=== PATIENT | female | born 1975 ===

== ENCOUNTER 2020-08-12 15:25 | Emergency (ER) | payer SELFPAY ==
[2020-08-12 15:51] VITALS: BP 124/84
--- NOTE | 2020-08-12 16:00 | Event Note ---
ED Screening Note Date of service: 08/12/20 Time: 16:00 ED Screening Note: Epigastric abdominal pain with distention, vomiting and nausea. This initial assessment/diagnostic orders/clinical plan/treatment(s) is/are subject to change based on patients health status, clinical progression and re- assessment by fellow clinical providers in the ED. Further treatment and workup at subsequent clinical providers discretion. Patient/guardian urged not to elope from the ED as their condition may be serious if not clinically assessed and managed. Initial orders include: CBC, CMP, lipase, urinalysis, urine test
[2020-08-12 16:50] LABS: Basophils % (Auto) 0.8 % (0.0-1.8); Eosinophils # (Auto) 0.1 K/mm3 (0.0-0.4); Eosinophils % (Auto) 2.1 % (0.0-4.3); Hematocrit 38.2 % (30.3-42.9); Hemoglobin 12.5 gm/dl (10.1-14.3); Lymphocytes # (Auto) 1.6 K/mm3 (1.2-5.4); Lymphocytes % (Auto) 32.3 % (13.4-35.0); Mean Corpuscular HGB Conc 33 % (30-34); Mean Corpuscular Volume 84 fl (79-97); Monocytes # (Auto) 0.5 K/mm3 (0.0-0.8); Monocytes % (Auto) 9.6 % (0.0-7.3); Platelet Count 253 K/mm3 (140-440); Red Blood Count 4.56 M/mm3 (3.65-5.03)
[2020-08-12 17:06] LABS: Alanine Aminotransferase 24 units/L (7-56); Albumin 4.1 g/dL (3.9-5); Blood Urea Nitrogen 12 mg/dL (7-17); Calcium 8.9 mg/dL (8.4-10.2); Hemolysis Index 7
[2020-08-12 17:09] LABS: BUN/Creatinine Ratio 24; Bilirubin,Direct < 0.2 mg/dL (0-0.2)
[2020-08-12] MEDS ORDERED: FAMOTIDINE 20 MG TAB PO ONE (21:17)
[2020-08-12] MEDS ORDERED: LIDOCAINE VISCOUS 2% 15 ML ORAL LIQD PO ONE (21:17)
[2020-08-12] MEDS ORDERED: ALUM-MAG HYDROXIDE-SIMETHICONE 200-200-20MG/5ML ORAL LIQD 30 ML PO ONE (21:17)
[2020-08-12 21:33] LABS: Bacteria,Urine 1+ /HPF (Negative); Bilirubin,Urine NEG (Negative); Blood,Urine NEG (Negative); Color,Urine Straw (Yellow); Mucus,Urine FEW /HPF; Protein,Urine <15 mg/dL mg/dL (Negative); Urobilinogen,Urine < 2.0 mg/dL (<2.0); WBC,Urine < 1.0 /HPF (0.0-6.0)
[2020-08-12 21:39] LABS: HCG Qualitative,Urine Negative (Negative)
[2020-08-12] MEDS ORDERED: traMADol 50 MG TAB PO ONE (22:25)
--- NOTE | 2020-08-12 23:28 | Emergency Department Report ---
ED Abdominal Pain HPI - General Chief Complaint: Abdominal Pain Stated Complaint: ABD PAIN/INFLAMATION Time Seen by Provider: 08/12/20 20:40 Source: patient Mode of arrival: Ambulatory Limitations: Language Barrier - History of Present Illness Initial Comments: 45-year-old [place]ian-speaking female with a past medical history tubal ligation presents to the hospital complaining of intermittent epigastric abdominal pain gradually worsening for the past 4 days. Pain is described as a burning sensation in her upper abdomen feels swollen. She denies nausea, vomiting, diarrhea, fever, or hematochezia. She does endorse black stools and constipation. She is not currently taking any medication and denies NSAID, aspirin, Pepto-Bismol, and iron tablet use. Severity scale (0 -10): 3 - Related Data Previous Rx's Medication Instructions Recorded Last Taken Type Docusate Sodium [Colace] 100 mg PO BID PRN #20 capsule 08/13/20 Unknown Rx HYDROcodone/APAP 5-325 [[place] 1 each PO Q6HR PRN #15 tablet 08/13/20 Unknown Rx 5/325] Mag Hydrox/Aluminum Hyd/Simeth 20 ml PO QID PRN #1 bottle 08/13/20 Unknown Rx [Maalox Advanced Suspension] Pantoprazole [Protonix TAB] 20 mg PO QDAY #30 tablet. 08/13/20 Unknown Rx Allergies Allergy/AdvReac Type Severity Reaction Status Date / Time No Known Allergies Allergy Unverified 08/12/20 15:50 ED Review of Systems ROS: Stated complaint: ABD PAIN/INFLAMATION Other details as noted in HPI Comment: All other systems reviewed and negative ED Past Medical Hx - Past Medical History Previous Medical History?: No - Surgical History Past Surgical History?: No - Social History Smoking Status: Current Every Day Smoker Substance Use Type: None - Medications Home Medications: Home Medications Medication Instructions Recorded Confirmed Last Taken Type Docusate Sodium [Colace] 100 mg PO BID PRN #20 capsule 08/13/20 Unknown Rx HYDROcodone/APAP 5-325 [[place] 1 each PO Q6HR PRN #15 tablet 08/13/20 Unknown Rx 5/325] Mag Hydrox/Aluminum Hyd/Simeth 20 ml PO QID PRN #1 bottle 08/13/20 Unknown Rx [Maalox Advanced Suspension] Pantoprazole [Protonix TAB] 20 mg PO QDAY #30 tablet. 08/13/20 Unknown Rx ED Physical Exam - General Limitations: Language Barrier - Other Other exam information: General: No acute distress Head: Atraumatic Eyes: normal appearance ENT: Moist mucous membranes Neck: Normal appearance, no midline tenderness Chest: Clear to auscultation bilaterally CV: Regular rate and rhythm Abdomen: Soft, normal bowel sounds, epigastric tenderness, nondistended, no rebo und or guarding Rectal: Dark/black stool with reddish discoloration that was faintly guaiac positive. There was no significant blue color change on areas of redness or areas of dark/black stool Back: Normal inspection Extremity: Normal inspection, full range of motion Neuro: Alert O x 3, no facial asymmetry, speech clear, no gross motor sensory deficit Psych: Appropriate behavior Skin: No rash ED Course Vital Signs 08/12/20 08/12/20 15:50 23:13 Temperature 97.8 F Pulse Rate 85 Respiratory 18 16 Rate Blood Pressure 124/84 O2 Sat by Pulse 97 Oximetry - Reevaluation(s) Reevaluation #1: 08/12/20 23:26 Patient received Pepcid, viscous lidocaine, and Maalox with some mild relief in pain. Tramadol also provided. Ultrasound ordered to rule out biliary disease Reevaluation #2: 08/13/20 00:17 I requested patient's height to be double checked because patient appears to be 5ft 4in as opposed to 6ft 4in as entered into the computer ED Medical Decision Making - Lab Data Result diagrams: 08/12/20 16:09 08/12/20 16:09 Lab Results 08/12/20 08/12/20 08/12/20 Range/Units 16:09 16:09 20:45 WBC 4.9 (4.5-11.0) K/mm3 RBC 4.56 (3.65-5.03) M/mm3 Hgb 12.5 (10.1-14.3) gm/dl Hct 38.2 (30.3-42.9) % MCV 84 (79-97) fl MCH 27 L (28-32) pg MCHC 33 (30-34) % RDW 14.0 (13.2-15.2) % Plt Count 253 (140-440) K/mm3 Lymph % (Auto) 32.3 (13.4-35.0) % [place] % (Auto) 9.6 H (0.0-7.3) % Eos % (Auto) 2.1 (0.0-4.3) % Baso % (Auto) 0.8 (0.0-1.8) % Lymph # (Auto) 1.6 (1.2-5.4) K/mm3 [place] # (Auto) 0.5 (0.0-0.8) K/mm3 Eos # (Auto) 0.1 (0.0-0.4) K/mm3 Baso # (Auto) 0.0 (0.0-0.1) K/mm3 Seg Neutrophils % 55.2 (40.0-70.0) % Seg Neutrophils # 2.7 (1.8-7.7) K/mm3 Sodium 139 (137-145) mmol/L Potassium 4.3 (3.6-5.0) mmol/L Chloride 104.5 (98-107) mmol/L Carbon Dioxide 22 (22-30) mmol/L Anion Gap 17 mmol/L BUN 12 (7-17) mg/dL Creatinine 0.5 L (0.6-1.2) mg/dL Estimated GFR > 60 ml/min BUN/Creatinine Ratio 24 % Glucose 96 (65-100) mg/dL Calcium 8.9 (8.4-10.2) mg/dL Total Bilirubin 0.20 (0.1-1.2) mg/dL Direct Bilirubin < 0.2 (0-0.2) mg/dL Indirect Bilirubin 0.0 mg/dL AST 29 (5-40) units/L ALT 24 (7-56) units/L Alkaline Phosphatase 108 (35-129) units/L Total Protein 7.5 (6.3-8.2) g/dL Albumin 4.1 (3.9-5) g/dL Albumin/Globulin Ratio 1.2 % Lipase 27 (13-60) units/L Urine Color Straw (Yellow) Urine Turbidity Clear (Clear) Urine pH 5.0 (5.0-7.0) Ur Specific [place] 1.003 (1.003-1.030) Urine Protein <15 mg/dl (Negative) mg/dL Urine Glucose (UA) Neg (Negative) mg/dL Urine Ketones Neg (Negative) mg/dL Urine Blood Neg (Negative) Urine Nitrite Neg (Negative) Urine Bilirubin Neg (Negative) Urine Urobilinogen < 2.0 (<2.0) mg/dL Ur Leukocyte Esterase Neg (Negative) Urine WBC (Auto) < 1.0 (0.0-6.0) /HPF Urine RBC (Auto) 1.0 (0.0-6.0) /HPF U Epithel Cells (Auto) 1.0 (0-13.0) /HPF Urine Bacteria (Auto) 1+ (Negative) /HPF Urine Mucus Few /HPF Urine HCG, Qual Negative (Negative) - Radiology Data Radiology results: report reviewed US abdomen limited INDICATION: Epigastric right upper quadrant pain COMPARISON: None. FINDINGS: Pancreas: No significant abnormality identified in the visualized portions of the pancreas. Abdominal aorta: No significant abnormality. IVC: Normal. Liver: Increased echogenicity. Gallbladder: No gallstones, gallbladder wall thickening, or pericholecystic fluid. Bile ducts: The common bile duct measures 3 mm. Additional findings: No significant additional findings. IMPRESSION: Findings suggesting diffuse hepatic steatosis. Otherwise, no significant sonographic abnormality. - Medical Decision Making 45-year-old female presents to the hospital with progressively worsening epigastric burning pain for the last 4 days. Vital signs unremarkable with normal lab work. Ultrasound shows fatty liver and without gallstones. Patient symptoms suggestive of GERD/gastritis without nausea or vomiting. Black stool reported however, only faintly guaiac positive but no signs of anemia. Patient also denies NSAIDs, aspirin use, or alcohol abuse. Patient received Maalox, viscous lidocaine, Pepcid, and tramadol with mild improvement. Additional [place] provided for residual pain. Sail Maker used during HPI, explanation of results, and explanation of discharge plan with questions addressed prior to discharge. Outpatient follow-up with GI specialist encouraged. Critical Care Time: No Critical care attestation.: If time is entered above; I have spent that time in minutes in the direct care of this critically ill patient, excluding procedure time. ED Disposition Clinical Impression: Gastritis, GERD (gastroesophageal reflux disease) Disposition: - TO HOME OR SELFCARE Is pt being admited?: No Does the pt Need Aspirin: No Condition: Stable Instructions: Abdominal Pain (ED), Heartburn, Gastroesophageal Reflux Disease, Adult Additional Instructions: Take the medication as prescribed. Follow-up with your doctor or doctor/clinic provided. It is important that you follow-up with a GI specialist which has been provided on your discharge instructions. Return if symptoms worsen as indicated by your discharge instructions. [place] el medicamento segn lo prescrito. Seguimiento con mcfadden mdico o lucila/shreyasa proporcionado. Es importante que realice un seguimiento con un especialista en GI que se le dover proporcionado en claudia instrucciones de alivia. Regrese si los sntomas empeoran segn lo indicado por las instrucciones de alivia. Prescriptions: Docusate Sodium [Colace] 100 mg PO BID PRN #20 capsule PRN Reason: Constipation Mag Hydrox/Aluminum Hyd/Simeth [Maalox Advanced Suspension] 20 ml PO QID PRN #1 bottle PRN Reason: Indigestion HYDROcodone/APAP 5-325 [[place] 5/325] 1 each PO Q6HR PRN #15 tablet PRN Reason: Pain Pantoprazole [Protonix TAB] 20 mg PO QDAY #30 tablet. Referrals: PRIMARY CARE, [Primary Care Provider] - 3-5 Days [facility] [Provider Group] - 3-5 Days ([facility] primaria.) JAMES JUÁREZ MD [Staff Physician] - 3-5 Days ([facility]) Time of Disposition: 00:25
--- NOTE | 2020-08-12 23:57 | Ultrasound Report ---
US abdomen limited INDICATION: Epigastric right upper quadrant pain COMPARISON: None. FINDINGS: Pancreas: No significant abnormality identified in the visualized portions of the pancreas. Abdominal aorta: No significant abnormality. IVC: Normal. Liver: Increased echogenicity. Gallbladder: No gallstones, gallbladder wall thickening, or pericholecystic fluid. Bile ducts: The common bile duct measures 3 mm. Additional findings: No significant additional findings. IMPRESSION: Findings suggesting diffuse hepatic steatosis. Otherwise, no significant sonographic abnormality. Signer Name: Mario Mazariegos MD Signed: 08/12/2020 11:52 PM Workstation Name: [id number]
[2020-08-13] MEDS ORDERED: HYDROcodone/ACETAMINOPHEN 5-325 MG TAB PO ONE (00:16)
== END 2020-08-13 01:09 | disposition home or self-care (01) ==
LOC: ED 15:25
DX: K29.70 Gastritis, unspecified, without bleeding (principal); K21.9 Gastro-esophageal reflux disease without esophagitis; F17.200 Nicotine dependence, unspecified, uncomplicated; Z79.899 Other long term (current) drug therapy
CPT/HCPCS: 36415; 76705; 80048; 80076; 81001; 81025; 82271; 83690; 85025